=== PATIENT | female | born 1970 | race Caucasian/White ===

== ENCOUNTER 2018-12-17 09:20 | Day surgery (SDC) | payer OTHER ==
[~2018-12-17] VITALS: Ht 167.6 cm; Wt 74.1 kg
[~2018-12-17 09:20] MED LIST: ASPI81 PO; ATOR20TA86 PO; LEVO125 PO; MELO-107 PO; METO25XL PO; NORT10 PO; OMEP20 PO; RANI150T7 PO; RIZA10TA27 PO; SUMA100T PO
[2018-12-17] MEDS ORDERED: SODIUM CHLORIDE 0.9% 1,000 ML IV ONE ×2 (09:30→09:33)
[2018-12-17 10:34] LABS: ANION GAP 11 mmol/L (8-16); CALCIUM, TOTAL 8.6 mg/dL (8.8-10.5); CARBON DIOXIDE 24 mmol/L (22-29); CHLORIDE 106 mmol/L (98-107); CREATININE 0.63 mg/dL (0.60-1.30); GLOMERULAR FILTR. RATE CALC > 60 mL/min (>60); GLUCOSE,RANDOM 98 mg/dL (70-110); POTASSIUM 3.9 mmol/L (3.5-5.1); SODIUM SERUM 141 mmol/L (136-145); UREA NITROGEN, BLOOD 12 mg/dL (7-18)
[2018-12-17 10:39] LABS: ALANINE AMINOTRANSFERASE 28 U/L (12-78); ALBUMIN 3.9 g/dL (3.4-5.0); ALKALINE PHOSPHATASE 59 U/L (46-116); ASPARTATE AMINOTRANSFERASE 13 U/L (15-37); BILIRUBIN,TOTAL 0.3 mg/dL (0.1-1.0); TOTAL PROTEIN, SERUM 7.2 g/dL (6.4-8.2)
[2018-12-17] MEDS ORDERED: IOVERSOL 350 MG/ML 100 ML VIAL ONE (11:08)
[2018-12-17] MEDS ORDERED: SODIUM CHLORIDE 0.9% 100 ML ONE (11:08)
[2018-12-17] MEDS ORDERED: DiphenhydrAMINE HCL 50 MG/ML VIAL IVP ONE (12:00)
[2018-12-17] MEDS ORDERED: DiphenhydrAMINE HCL 50 MG/ML VIAL ONE (12:00)
== END 2018-12-17 13:55 | disposition home or self-care (01) ==
LOC: SURGERY 09:20 → EDSTATUS 11:00 → SURGERY 13:55
PROVIDERS: ATTEND Internal Medicine Cardiovascular Disease
DX: R42 Dizziness and giddiness (principal); I20.9 Angina pectoris, unspecified; I73.9 Peripheral vascular disease, unspecified; E78.00 Pure hypercholesterolemia, unspecified; E89.0 Postprocedural hypothyroidism; Z79.82 Long term (current) use of aspirin; Z79.899 Other long term (current) drug therapy; Z98.890 Other specified postprocedural states
CPT/HCPCS: 36415; 70498; 80053; 84702; J1200; J7030; J7050; Q9967